=== PATIENT | male | born 1960 | race Caucasian/White ===

== ENCOUNTER → 2017-02-25 | Outpatient (CLI) | payer OTHER, MEDICAID ==
[2017-02-25 13:23] LABS: CREATININE 1.09 mg/dL (0.70-1.30)
--- NOTE | 2017-02-26 09:10 | MRI ---
HISTORY: Neuritis, cervical pain and numbness Study: MRI cervical spine with and without contrast Comparison: None Technique: Multiplanar multisequence pre and post-contrast MRI of the cervical spine was obtained ut ilizing standard departmental protocol. Findings: Alignment of the cervical spine is maintained. No abnormal signal characteristics of the bone marro w can be identified with the exception of some degenerative endplate changes at C5-6. No evidence f or fracture or significant bone or edema can be seen. The surrounding soft tissues are unremarkable . The cervical spinal cord is normal in size and configuration and without foci of abnormal signal or abnormal enhancement. C2 -- C3: No evidence for compressive disc disease. The neural foramina are patent. C3 -- C4: No evidence for compressive disc disease. The neural foramina are patent. C4 -- C5: No evidence for compressive disc disease. There is spondylitic foraminal narrowing bilater ally. C5 -- C6: There is disc degeneration with broad-based disc protrusion which effaces the thecal sac a nd contributes along with spondylitic change to moderate canal stenosis but no cord compression. It contributes along with spondylitic change to foraminal narrowing bilaterally. C6 -- C7: Mild disk bulging effaces the thecal sac but does not contribute to significant canal sten osis or cord compression. It contributes to mild foraminal narrowing on the left. The right neural f oramen is patent. C7 -- T1: No evidence for compressive disc disease. The neural foramina are patent. IMPRESSION: As above Reported By:
--- NOTE | 2017-02-26 10:02 | MRI ---
HISTORY: Chronic headaches Study: MRI brain with and without contrast Comparison: None Technique: Multi planar multi sequence pre and post-contrast imaging and diffusion imaging Findings: The ventricles are normal in size shape and position. There are no areas of abnormal diffusion restr iction to suggest acute or recent CVA. There are no areas of abnormal signal or abnormal enhancement to suggest remote CVA, hemorrhage, mass lesion, demyelination, inflammation, or extra-axial fluid c ollection. No enhancing lesions are identified. No definite vascular abnormality or vascular anomaly is identified. Appropriate vascular flow voids are identified. The CP angles are clear. The sinuses are clear. IMPRESSION: No significant abnormality identified Reported By:
--- NOTE | 2017-02-26 14:02 | MRI ---
HISTORY: Neuritis, thoracic spine pain Study: MRI thoracic spine with without contrast Comparison: None Technique: Multiplanar multi-sequence MRI of the thoracic spine was obtained with standard [facility] protocol. Findings: The thoracic spine demonstrates normal alignment. No abnormal cord or marrow signal identified. The re is a large hiatal hernia noted with partial intrathoracic stomach. Vertebral body heights are pre served. Multilevel degenerative disc space narrowing, spondylosis and disc desiccation is present. Multilevel hypertrophic changes in the posterior elements are seen causing mild effacement of the do rsal thecal sac. Findings are most severe at T10 where there is cord flattening and mild to moderate spinal canal stenosis with 6 mm AP diameter of the canal at this level. Mild increased signal is al so seen within the cord that could reflect myelomalacia. No abnormal enhancement is seen. No mass le sions or evidence of inflammation. IMPRESSION: 1. Mild to moderate spinal stenosis at T10 as described due to posterior element hypertrophic change s. 2. Multilevel disc disease. Reported By:
== END | disposition home or self-care (01) | DRG 103 ==
LOC: RAD 12:42
PROVIDERS: ATTEND Neurological Surgery
DX: G43.509 Persistent migraine aura without cerebral infarction, not intractable, without status migrainosus (principal); M50.122 Cervical disc disorder at C5-C6 level with radiculopathy; M51.84 Other intervertebral disc disorders, thoracic region
CPT/HCPCS: 36415; 70553; 72156; 72157; 82565; 84520